=== PATIENT | female | born 1940 | race Caucasian/White ===

== ENCOUNTER 2021-06-26 08:28 | Outpatient (CLI) | payer MEDICARE, SELFPAY ==
[2021-06-26 09:08] LABS: Alanine Aminotransferase 9 U/L (4-35); Albumin Level 4.2 g/dL (3.5-5.1); Alkaline Phosphatase 65 U/L (38-126); Anion Gap 7 mmol/L (8-16); Aspartate Amino Transferase 23 U/L (14-36); Bilirubin,Total 0.8 mg/dL (0.2-1.3); Blood Urea Nitrogen 18 mg/dL (7-17); Calcium 9.3 mg/dL (8.4-10.2); Carbon Dioxide 28 mmol/L (22-30); Chloride 103 mmol/L (98-107); Cholesterol 235 mg/dL (0-200); Estimated Glomerular Filt Rate > 60; Glucose 116 mg/dL (65-110); HDL Direct 96 mg/dL; Hematocrit 36.2 % (37.0-47.0); Mean Corpuscular HGB Conc 33.1 g/dl (32-36); Mean Corpuscular Hemoglobin 32.8 pg (26-34); Mean Corpuscular Volume 98.9 fl (80-100); Mean Platelet Volume 11.1 fl (7.4-10.4); Platelet Count Result 218 k/mm3 (150-375); Red Blood Count 3.66 M/mm3 (4.2-5.4); Red Cell Distribution Width 13.5 % (11.5-14.5); Sodium 138 mmol/L (137-145); Triglycerides 87 mg/dL (<150); White Blood Count 5.4 K/mm3 (4.5-10.0)
[2021-06-26 09:19] LABS: LDL Cholesterol Direct 110 mg/dL
== END 2021-06-26 08:29 | disposition home or self-care (01) ==
PROVIDERS: PCP Family Medicine; Visit Provider Family Medicine
DX: E78.5 Hyperlipidemia, unspecified (principal); R71.8 Other abnormality of red blood cells
CPT/HCPCS: 36415; 80053; 80061; 85027

== ENCOUNTER 2021-07-17 09:00 | Outpatient (CLI) | payer MEDICARE, SELFPAY ==
--- NOTE | ~2021-07-17 | MM_ITS ---
EXAMINATION: MM screening refugio BI w koby HISTORY: Screening TECHNIQUE: Craniocaudal and mediolateral oblique 3-D tomosynthesis images were obtained and synthetic 2-D images were generated. CAD analysis was submitted and interpreted. COMPARISON: No prior mammogram is available for comparison at this institution. BREAST PARENCHYMAL COMPOSITION: There are scattered areas of fibroglandular density. FINDINGS: There is no evidence of suspicious mass, calcification, or architectural distortion to sugg est malignancy in either breast. There has been no suspicious interval change. IMPRESSION: 1. No mammographic evidence of malignancy. 2. Recommend routine screening mammography in one year. BI-RADS Category 1: Negative Reviewed, dictated and finalized at location A. 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
[2021-07-17 10:08] LABS: Iron 121 ug/dL (37-170)
[2021-07-17 10:17] LABS: Percent Iron Saturation 42 % (20-50)
[2021-07-17 10:46] LABS: Folic Acid 7.5 ng/mL (2.76->20)
== END 2021-07-17 09:01 | disposition home or self-care (01) ==
LOC: ANHIMG 09:02
PROVIDERS: PCP Family Medicine; Visit Provider Family Medicine
DX: Z12.31 Encounter for screening mammogram for malignant neoplasm of breast (principal); D64.9 Anemia, unspecified
CPT/HCPCS: 36415; 77063; 77067; 82607; 82746; 83540; 83550

== ENCOUNTER 2021-12-09 07:04 | Outpatient (CLI) | payer MEDICARE, SELFPAY ==
[2021-12-09 08:02] LABS: Hematocrit 34.8 % (37.0-47.0); Hemoglobin 11.2 g/dL (12.0-15.0); Mean Corpuscular HGB Conc 32.2 g/dl (32-36); Mean Corpuscular Hemoglobin 31.9 pg (26-34); Mean Corpuscular Volume 99.1 fl (80-100); Mean Platelet Volume 11.2 fl (7.4-10.4); Platelet Count Result 200 k/mm3 (150-375); Red Blood Count 3.51 M/mm3 (4.2-5.4); Red Cell Distribution Width 13.6 % (11.5-14.5); White Blood Count 5.4 K/mm3 (4.5-10.0)
[2021-12-09 08:23] LABS: Alanine Aminotransferase 6 U/L (6-35); Alkaline Phosphatase 70 U/L (38-126); Anion Gap 2 mmol/L (8-16); Aspartate Amino Transferase 20 U/L (14-36); Bilirubin,Total 0.4 mg/dL (0.2-1.3); Blood Urea Nitrogen 22 mg/dL (7-17); Calcium 8.5 mg/dL (8.4-10.2); Carbon Dioxide 29 mmol/L (22-30); Chloride 109 mmol/L (98-107); Cholesterol 211 mg/dL (0-200); Estimated Glomerular Filt Rate > 60; Glucose 100 mg/dL (65-110); HDL Direct 80 mg/dL; Potassium 3.8 mmol/L (3.4-5.0); Sodium 140 mmol/L (137-145); Triglycerides 43 mg/dL (<150)
[2021-12-09 08:34] LABS: LDL Cholesterol Direct 97 mg/dL
[2021-12-09 08:53] LABS: Carcinoembryonic Antigen 3.7 ng/mL (0.0-3.0)
[2021-12-12 16:08] LABS: Vitamin D 1,25 (OH)2 Total 49 pg/mL (18-72); Vitamin D2 1,25 (OH)2 <8 pg/mL; Vitamin D3 1,25 (OH)2 49 pg/mL
== END 2021-12-09 07:05 | disposition home or self-care (01) ==
LOC: ANHLAB 07:06
PROVIDERS: PCP Family Medicine; Visit Provider Family Medicine
DX: D64.9 Anemia, unspecified (principal); E78.5 Hyperlipidemia, unspecified; E55.9 Vitamin D deficiency, unspecified; Z85.038 Personal history of other malignant neoplasm of large intestine
CPT/HCPCS: 36415; 80053; 80061; 82378; 82652; 84443; 85027

== ENCOUNTER 2021-12-17 08:29 | Outpatient (CLI) | payer MEDICARE, SELFPAY ==
--- NOTE | ~2021-12-17 | CT_ITS ---
EXAMINATION: CT abdomen pelvis w con INDICATION: History of colon cancer TECHNIQUE: Computed tomographic images of the abdomen and pelvis were obtained after the administrati on of 100 cc of Omnipaque 300 intravenous contrast. The dose-length product (DLP) was 175.75 mGy-cm. Automated exposure control and iterative reconstruction technique were employed. COMPARISON: None available FINDINGS: The lung bases are clear. The heart size is normal. The liver, pancreas, gallbladder, and a drenal glands are normal. Subtle areas of low attenuation of the spleen likely represent cysts or lym phangiomas. The kidneys are unremarkable. There is calcified atherosclerosis of the aorta and many of the other arteries. There are changes of right hemicolectomy. No pathologically enlarged abdominal o r pelvic lymph nodes are identified. There is no free intraperitoneal gas or evidence of bowel obstru ction. Colonic diverticulosis is present without evidence of diverticulitis. There is mild thickening of the endometrium. Small cysts of the ovaries measure up to 1.8 cm on the left. IMPRESSION: 1. Changes of right hemicolectomy without evidence of residual or metastatic disease. 2. Endometrial thickening and small ovarian cysts. Follow-up with pelvic ultrasound is recommended. Reviewed, dictated and finalized at location A. IMPRESSION: 1. Changes of right hemicolectomy without evidence of residual or metastatic di sease. 2. Endometrial thickening and small ovarian cysts. Follow-up with pelvic ultras ound is recommended.
== END 2021-12-17 08:30 | disposition home or self-care (01) ==
LOC: ANHIMG 08:30
PROVIDERS: PCP Family Medicine; Visit Provider Family Medicine
DX: Z85.038 Personal history of other malignant neoplasm of large intestine (principal); K57.30 Diverticulosis of large intestine without perforation or abscess without bleeding; N83.292 Other ovarian cyst, left side; N83.291 Other ovarian cyst, right side; R93.89 Abnormal findings on diagnostic imaging of other specified body structures
CPT/HCPCS: 74177; Q9967

== ENCOUNTER 2021-12-31 14:58 | Outpatient (CLI) | payer MEDICARE, SELFPAY ==
--- NOTE | ~2021-12-31 | US_ITS ---
EXAMINATION: US pelvic complete DATE: 12/31/2021 15:46 INDICATION: Postmenopausal. Endometrial thickening. Left ovarian cyst. Comparison:No prior studies for comparison. TECHNIQUE: Multiple transabdominal and endovaginal sonographic images of the pelvis performed. FINDINGS: The uterus measures 4.5 x 2.1 x 3.9 cm. The endometrial complex measures 8 mm. The right ovary measures 2.5 x 1.5 x 1.3 cm and the left ovary measures 2.5 x 2.5 x 2.2 cm. There is a 2.2 cm left ovarian cyst. Normal doppler signal in both ovaries. There is no free fluid in the pelvis. There are no abnormal masses seen on either side. IMPRESSION: 1. Thickened endomtrial complex. The differential diagnosis includes endometrial hyperplasia, polyp a nd carcinoma. Biopsy is recommended. 2: Left ovarian cyst measuring 2.2 cm. Reviewed, dictated and finalized at location A. IMPRESSION: 1. Thickened endomtrial complex. The differential diagnosis includes endometria l hyperplasia, polyp and carcinoma. Biopsy is recommended. 2: Left ovarian cyst measuring 2.2 cm.
== END 2021-12-31 14:59 | disposition home or self-care (01) ==
LOC: ANHIMG 14:59
PROVIDERS: PCP Family Medicine; Visit Provider Family Medicine
DX: N83.202 Unspecified ovarian cyst, left side (principal)
CPT/HCPCS: 76856

== ENCOUNTER 2022-01-29 12:40 | Outpatient (CLI) | payer MEDICARE, SELFPAY ==
[2022-02-02 07:27] LABS: CA-125 4 U/mL (<35)
== END 2022-01-29 12:41 | disposition home or self-care (01) ==
LOC: ANHLAB 12:49
PROVIDERS: PCP Family Medicine; Visit Provider Obstetrics & Gynecology
DX: R19.09 Other intra-abdominal and pelvic swelling, mass and lump (principal)
CPT/HCPCS: 36415; 86304

== ENCOUNTER → 2022-02-23 12:46 | Outpatient (CLI) | payer MEDICARE, SELFPAY ==
--- NOTE | ~2022-02-23 | XR_ITS ---
XR abdomen/kub 1V DATE: 02/23/2022 12:59 INDICATION: Urine positive for urinary tract infection. Evaluate for kidney stones. TECHNIQUE: Supine AP view COMPARISON: 12/17/2021 CT abdomen pelvis with IV contrast material FINDINGS: No kidney or other urinary tract stones were evident on the CT abdomen pelvis examination o f 12/17/2021. No apparent renal calcifications are noted on the KUB. Status post right partial colectomy with suture line overlying the right midabdomen. The psoas shadows are intact. No visceromegaly is evident. There is no evidence of bowel obstruction. Mild levoscoliosis of multilevel degenerative disc disease of the lumbar spine. Diffuse osteopenia. IMPRESSION: No urinary tract calcifications are evident Status post right partial colectomy Reviewed, dictated and finalized at Location A. Reviewed, dictated and finalized at location B.
== END ==
PROVIDERS: PCP Family Medicine; Visit Provider Family Medicine
DX: R10.9 Unspecified abdominal pain (principal)
CPT/HCPCS: 74018

== ENCOUNTER 2022-05-04 08:20 | Outpatient (CLI) | payer MEDICARE, SELFPAY ==
[2022-05-04 08:42] LABS: Hematocrit 34.8 % (37.0-47.0); Hemoglobin 11.1 g/dL (12.0-15.0); Mean Corpuscular HGB Conc 31.9 g/dl (32-36); Mean Corpuscular Volume 97.2 fl (80-100); Mean Platelet Volume 10.7 fl (7.4-10.4); Platelet Count Result 214 k/mm3 (150-375); Red Blood Count 3.58 M/mm3 (4.2-5.4); White Blood Count 4.8 K/mm3 (4.5-10.0)
[2022-05-04 08:54] LABS: Alanine Aminotransferase 8 U/L (6-35); Alkaline Phosphatase 67 U/L (38-126); Anion Gap 10 mmol/L (8-16); Aspartate Amino Transferase 20 U/L (14-36); Bilirubin,Total 0.3 mg/dL (0.2-1.3); Blood Urea Nitrogen 20 mg/dL (7-17); Calcium 8.6 mg/dL (8.4-10.2); Carbon Dioxide 29 mmol/L (22-30); Chloride 102 mmol/L (98-107); Cholesterol 206 mg/dL (0-200); Estimated Glomerular Filt Rate > 60; Glucose 97 mg/dL (65-110); HDL Direct 69 mg/dL; Potassium 4.1 mmol/L (3.4-5.0); Sodium 141 mmol/L (137-145); Triglycerides 50 mg/dL (<150)
[2022-05-04 09:05] LABS: LDL Cholesterol Direct 101 mg/dL
== END 2022-05-04 08:21 | disposition home or self-care (01) ==
PROVIDERS: PCP Family Medicine; Visit Provider Family Medicine
DX: E78.5 Hyperlipidemia, unspecified (principal); D64.9 Anemia, unspecified
CPT/HCPCS: 36415; 80053; 80061; 85027

== ENCOUNTER 2022-05-20 08:16 | Outpatient (CLI) | payer MEDICARE, SELFPAY ==
[2022-05-20 08:36] LABS: Hematocrit 35.8 % (37.0-47.0); Hemoglobin 11.5 g/dL (12.0-15.0); Mean Corpuscular HGB Conc 32.1 g/dl (32-36); Mean Corpuscular Hemoglobin 31.9 pg (26-34); Mean Corpuscular Volume 99.2 fl (80-100); Mean Platelet Volume 10.7 fl (7.4-10.4); Platelet Count Result 194 k/mm3 (150-375); Red Blood Count 3.61 M/mm3 (4.2-5.4)
[2022-05-20 09:02] LABS: Iron 85 ug/dL (37-170)
[2022-05-20 09:03] LABS: Alanine Aminotransferase 10 U/L (6-35); Albumin Level 4.3 g/dL (3.5-5.1); Alkaline Phosphatase 79 U/L (38-126); Anion Gap 9 mmol/L (8-16); Aspartate Amino Transferase 20 U/L (14-36); Bilirubin,Total 0.5 mg/dL (0.2-1.3); Blood Urea Nitrogen 26 mg/dL (7-17); Calcium 8.9 mg/dL (8.4-10.2); Carbon Dioxide 27 mmol/L (22-30); Chloride 104 mmol/L (98-107); Cholesterol 218 mg/dL (0-200); Estimated Glomerular Filt Rate > 60; Glucose 99 mg/dL (65-110); HDL Direct 77 mg/dL; Sodium 140 mmol/L (137-145); Triglycerides 55 mg/dL (<150)
[2022-05-20 09:11] LABS: Percent Iron Saturation 31 % (20-50)
[2022-05-20 09:14] LABS: LDL Cholesterol Direct 94 mg/dL
== END 2022-05-20 08:17 | disposition home or self-care (01) ==
LOC: ANHLAB 08:18
PROVIDERS: PCP Family Medicine; Visit Provider Family Medicine
DX: D64.9 Anemia, unspecified (principal); E78.5 Hyperlipidemia, unspecified; Z79.899 Other long term (current) drug therapy
CPT/HCPCS: 36415; 80053; 80061; 82728; 83540; 83550; 85027

== ENCOUNTER 2022-07-08 10:09 | Outpatient (CLI) | payer MEDICARE, SELFPAY ==
--- NOTE | ~2022-07-08 | CT_ITS ---
EXAMINATION: CT abdomen pelvis w con INDICATION: History of colon cancer TECHNIQUE: Computed tomographic images of the abdomen and pelvis were obtained after the administrati on of 100 cc of Omnipaque 350 intravenous contrast. The dose-length product (DLP) was 272.37 mGy-cm. Automated exposure control and iterative reconstruction technique were employed. COMPARISON: 12/17/2021 FINDINGS: Minimal dependent atelectasis is present in the lung bases. The heart size is normal. The l iver, pancreas, gallbladder, and adrenal glands are normal. Again noted are small, subtle areas of lo w attenuation in the spleen, likely reflecting cysts or lymphangiomas. Cysts of the kidneys measure u p to 7 mm on the left. There is calcified atherosclerosis of the aorta and many of the other arteries . There are changes of right hemicolectomy. No pathologically enlarged abdominal or pelvic lymph node s are identified. There is no free intraperitoneal gas or evidence of bowel obstruction. Again noted are small, stable cysts of the ovaries measuring up to 1.8 cm on the left. Colonic diverticulosis is present without evidence of diverticulitis. There is severe lumbar spondylosis. IMPRESSION: 1. Changes of right hemicolectomy without evidence of residual or metastatic disease. Reviewed, dictated and finalized at location B. 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 Changes of right hemicolectomy without evidence of residual or metastatic di kevin.
[2022-07-08 10:32] LABS: Estimated Glomerular Filt Rate 60
== END 2022-07-08 10:10 | disposition home or self-care (01) ==
PROVIDERS: PCP Family Medicine; Visit Provider Family Medicine
DX: Z85.038 Personal history of other malignant neoplasm of large intestine (principal)
CPT/HCPCS: 74177; Q9967

== ENCOUNTER 2022-07-16 08:25 | Outpatient (CLI) | payer MEDICARE, SELFPAY ==
[2022-07-19 04:24] LABS: CA-125 6 U/mL (<35)
== END 2022-07-16 08:26 | disposition home or self-care (01) ==
PROVIDERS: PCP Family Medicine; Visit Provider Obstetrics & Gynecology
DX: R19.09 Other intra-abdominal and pelvic swelling, mass and lump (principal)
CPT/HCPCS: 36415; 86304

== ENCOUNTER 2022-09-28 08:45 | Outpatient (CLI) | payer MEDICARE, SELFPAY ==
[2022-09-28 09:16] LABS: Hematocrit 35.5 % (37.0-47.0); Hemoglobin 11.4 g/dL (12.0-15.0); Mean Corpuscular HGB Conc 32.1 g/dl (32-36); Mean Corpuscular Hemoglobin 31.4 pg (26-34); Mean Corpuscular Volume 97.8 fl (80-100); Mean Platelet Volume 10.2 fl (7.4-10.4); Platelet Count Result 210 k/mm3 (150-375); Red Blood Count 3.63 M/mm3 (4.2-5.4); Red Cell Distribution Width 13.2 % (11.5-14.5); White Blood Count 4.3 K/mm3 (4.5-10.0)
[2022-09-28 09:27] LABS: Alanine Aminotransferase 11 U/L (6-35); Alkaline Phosphatase 62 U/L (38-126); Anion Gap 4 mmol/L (8-16); Aspartate Amino Transferase 22 U/L (14-36); Bilirubin,Total 0.6 mg/dL (0.2-1.3); Blood Urea Nitrogen 18 mg/dL (7-17); Calcium 8.6 mg/dL (8.4-10.2); Carbon Dioxide 31 mmol/L (22-30); Chloride 103 mmol/L (98-107); Cholesterol 223 mg/dL (0-200); Estimated Glomerular Filt Rate > 60; Glucose 98 mg/dL (65-110); HDL Direct 85 mg/dL; Potassium 4.1 mmol/L (3.4-5.0); Sodium 138 mmol/L (137-145); Triglycerides 100 mg/dL (<150)
[2022-09-28 09:37] LABS: LDL Cholesterol Direct 103 mg/dL
[2022-10-01 23:50] LABS: Vitamin D 1,25 (OH)2 Total 50 pg/mL (18-72); Vitamin D2 1,25 (OH)2 <8 pg/mL; Vitamin D3 1,25 (OH)2 50 pg/mL
== END 2022-09-28 08:46 | disposition home or self-care (01) ==
PROVIDERS: PCP Family Medicine; Visit Provider Family Medicine
DX: D64.9 Anemia, unspecified (principal); E55.9 Vitamin D deficiency, unspecified; E78.5 Hyperlipidemia, unspecified; Z79.899 Other long term (current) drug therapy
CPT/HCPCS: 36415; 80053; 80061; 82652; 85027

== ENCOUNTER 2022-10-01 09:52 | Outpatient (CLI) | payer MEDICARE, SELFPAY ==
--- NOTE | ~2022-10-01 | MM_ITS ---
EXAMINATION: MM screening refugio BI w koby HISTORY: Screening TECHNIQUE: Craniocaudal and mediolateral oblique 3-D tomosynthesis images were obtained and synthetic 2-D images were generated. CAD analysis was submitted and interpreted. COMPARISON: 07/07/2021 BREAST PARENCHYMAL COMPOSITION: Breast composed of scattered areas of fibroglandular density FINDINGS: The right breast is stable without evidence for malignancy. There is developing asymmetry i n the outer aspect of the left breast on CC view. There is a new mass in the upper outer quadrant of the left breast anteriorly. IMPRESSION: 1. New left breast mass with developing left breast asymmetry. 2. Additional mammographic views and possible breast ultrasound are recommended. BI-RADS Category 0: Incomplete: Needs additional imaging evaluation. Reviewed, dictated and finalized at location A. IMPRESSION: 1. New left breast mass with developing left breast asymmetry. 2. Additional mammographic views and possible breast ultrasound are recommended . BI-RADS Category 0: Incomplete: Needs additional imaging evaluation.
== END 2022-10-01 09:53 | disposition home or self-care (01) ==
PROVIDERS: PCP Family Medicine; Visit Provider Family Medicine
DX: Z12.31 Encounter for screening mammogram for malignant neoplasm of breast (principal); N63.20 Unspecified lump in the left breast, unspecified quadrant
CPT/HCPCS: 77063; 77067

== ENCOUNTER 2022-10-21 12:55 | Outpatient (CLI) | payer MEDICARE, SELFPAY ==
--- NOTE | ~2022-10-21 | MMUS_ITS ---
EXAMINATION: MM diagnostic refugio LT w koby, US breast LT limited HISTORY: New left breast mass and developing left breast asymmetry reported on October 01, 2022 screenin g mammogram TECHNIQUE: Additional 3-D tomosynthesis images of left breast were performed and synthetic 2-D images were generated. CAD analysis was submitted and interpreted. High resolution upper outer quadrant lef t breast ultrasound was performed. COMPARISON: October 01, 2022 bilateral screening mammogram July 17, 2021 bilateral screening mammogram FINDINGS: MAMMOGRAPHIC FINDINGS: There is a circumscribed approximately 5 mm opacity with halo sign in the anterior aspect of the uppe r inner quadrant of the left breast. The mammographic appearance is benign. No suspicious mass, architectural distortion, malignant calcification, skin thickening or retraction is detected otherwise. ULTRASOUND: Real-time imaging of the upper outer quadrant left breast reveals a 4 x 6 mm simple cyst with through transmission and posterior enhancement at 1:00 3 cm from the nipple, corresponding to the mammograph ic finding. No suspicious mass or shadowing, cyst or other significant finding is noted elsewhere in the upper ou ter quadrant of the left breast IMPRESSION: 1. Benign 4 x 6 mm cyst at 1:00 3 cm from nipple 2. Routine mammographic screening is recommended BI-RADS Category 2: Benign finding(s). Reviewed, dictated and finalized at location A. IMPRESSION: 1. Benign 4 x 6 mm cyst at 1:00 3 cm from nipple 2. Routine mammographic screening is recommended BI-RADS Category 2: Benign finding(s).
== END 2022-10-21 12:56 | disposition home or self-care (01) ==
LOC: ANHIMG 12:55
PROVIDERS: PCP Family Medicine; Visit Provider Family Medicine
DX: N63.21 Unspecified lump in the left breast, upper outer quadrant (principal); N60.02 Solitary cyst of left breast
CPT/HCPCS: 76642; 77061; 77065; G0279

== ENCOUNTER 2023-02-11 10:36 | Outpatient (CLI) | payer MEDICARE, SELFPAY ==
--- NOTE | ~2023-02-11 | US_ITS ---
EXAMINATION: US pelvic complete DATE: 02/11/2023 11:24 INDICATION: Ovarian cyst. TECHNIQUE: Multiple transabdominal sonographic images of the pelvis were obtained. COMPARISON: CT abdomen and pelvis 07/08/2022, pelvis ultrasound 12/31/2021 FINDINGS: The uterus measures 4.4 x 1.8 x 2.9 cm. There is no free fluid in the pelvis. The endometrial complex measures 2 mm in thickness. The right ovary measures 1.6 x 3.1 x 2.3 cm. There is a 2.6 cm cyst in r ight ovary, likely benign. The left ovary measures 2.9 x 3.2 x 2.6 cm. There is a 2.5 cm cyst in left ovary, likely benign. There is normal vascular flow in the ovaries. IMPRESSION: 1. Small ovarian cysts, likely benign. Reviewed, dictated and finalized at location A.
== END 2023-02-11 10:37 | disposition home or self-care (01) ==
LOC: ANHIMG 10:38
PROVIDERS: PCP Family Medicine; Visit Provider Obstetrics & Gynecology
DX: N83.201 Unspecified ovarian cyst, right side (principal)
CPT/HCPCS: 76856

== ENCOUNTER 2023-04-01 08:29 | Outpatient (CLI) | payer MEDICARE, SELFPAY ==
[2023-04-04 01:22] LABS: CA-125 4 U/mL (<35)
== END 2023-04-01 08:30 | disposition home or self-care (01) ==
PROVIDERS: PCP Family Medicine; Visit Provider Obstetrics & Gynecology
DX: N83.209 Unspecified ovarian cyst, unspecified side (principal); R19.09 Other intra-abdominal and pelvic swelling, mass and lump
CPT/HCPCS: 36415; 86304

== ENCOUNTER 2023-07-20 08:05 | Outpatient (CLI) | payer MEDICARE, SELFPAY ==
[2023-07-20 09:11] LABS: Hematocrit 37.9 % (37.0-47.0); Mean Corpuscular HGB Conc 31.7 g/dl (32-36); Mean Corpuscular Hemoglobin 31.7 pg (26-34); Mean Corpuscular Volume 100.3 fl (80-100); Mean Platelet Volume 11.5 fl (7.4-10.4); Platelet Count Result 216 k/mm3 (150-375); Red Blood Count 3.78 M/mm3 (4.2-5.4); Red Cell Distribution Width 12.9 % (11.5-14.5); White Blood Count 4.8 K/mm3 (4.5-10.0)
[2023-07-20 09:25] LABS: Alanine Aminotransferase 8 U/L (6-35); Albumin Level 3.9 g/dL (3.5-5.1); Alkaline Phosphatase 66 U/L (38-126); Anion Gap 5 mmol/L (8-16); Aspartate Amino Transferase 21 U/L (14-36); Bilirubin,Total 0.7 mg/dL (0.2-1.3); Blood Urea Nitrogen 18 mg/dL (7-17); Calcium 8.9 mg/dL (8.4-10.2); Carbon Dioxide 31 mmol/L (22-30); Chloride 103 mmol/L (98-107); Cholesterol 217 mg/dL (0-200); Estimated Glomerular Filt Rate > 60; Glucose 96 mg/dL (65-110); HDL Direct 81 mg/dL; Potassium 3.5 mmol/L (3.4-5.0); Sodium 139 mmol/L (137-145); Triglycerides 69 mg/dL (<150)
[2023-07-20 09:36] LABS: LDL Cholesterol Direct 110 mg/dL
[2023-07-20 09:54] LABS: Carcinoembryonic Antigen 3.7 ng/mL (0.0-3.0)
== END 2023-07-20 08:06 | disposition home or self-care (01) ==
PROVIDERS: PCP Family Medicine; Visit Provider Family Medicine
DX: E78.5 Hyperlipidemia, unspecified (principal); D64.9 Anemia, unspecified; Z79.899 Other long term (current) drug therapy; Z85.038 Personal history of other malignant neoplasm of large intestine
CPT/HCPCS: 36415; 80053; 80061; 82378; 84443; 85027

== ENCOUNTER → 2023-07-26 10:41 | Outpatient (CLI) | payer MEDICARE, SELFPAY ==
--- NOTE | ~2023-07-26 | XR_ITS ---
XR shoulder LT min 2V DATE: 07/26/2023 14:21 INDICATION: Left shoulder pain TECHNIQUE: 4 views COMPARISON: None FINDINGS: There is diffuse osteopenia. There is prominent degenerative disc disease of the included lower cervical spine. There is mild scoliosis as well as degenerative spurring of the thoracic spine. There is mild spurring of the left humeral head consistent with osteoarthritis. No fracture, dislocat ion, periosteal reaction or bone destruction or abnormal soft tissue calcification of the left should er. Aortic arch calcification. IMPRESSION: Glenohumeral osteoarthritis Osteopenia Degenerative changes of the cervical and thoracic spine Reviewed, dictated and finalized at location B. 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
== END ==
PROVIDERS: PCP Family Medicine; Visit Provider Family Medicine
DX: M19.012 Primary osteoarthritis, left shoulder (principal); M85.80 Other specified disorders of bone density and structure, unspecified site; M47.814 Spondylosis without myelopathy or radiculopathy, thoracic region; M47.812 Spondylosis without myelopathy or radiculopathy, cervical region
CPT/HCPCS: 73030

== ENCOUNTER → 2023-07-29 09:09 | Outpatient (CLI) | payer MEDICARE, SELFPAY ==
--- NOTE | ~2023-07-29 | CT_ITS ---
CT of the Abdomen and Pelvis: Indication: Colon cancer Technique: 2.5 mm axial scans were obtained through the abdomen and pelvis following intravenous adm inistration of 100 cc of Omnipaque 350. Dose reduction technique was used on this scan by utilizing a utomated exposure control and iterative reconstruction technique. The dose-length product (DLP) was 3 88.27 mGy-cm. COMPARISON: 07/08/2022 Findings: Scans through the lung bases are unremarkable. The liver, spleen, pancreas, gallbladder, adrenals and kidneys are within normal limits. There are at herosclerotic calcifications of the aorta. No lymphadenopathy. No bowel obstruction or bowel wall thickening. Evidence of prior partial right colectomy. Images through the pelvis were performed. Urinary bladder unremarkable. 2.3 cm cystic left ovarian le jennifer noted. 1.6 cm cystic right ovarian lesion noted. No ascites. Impression: No evidence for active malignancy or metastatic disease. Partial right colectomy. Small cystic bilateral ovarian lesions, unchanged. Reviewed, dictated and finalized at location . 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 Partial right colectomy. Small cystic bilateral ovarian lesions, unchanged.
== END ==
PROVIDERS: PCP Family Medicine; Visit Provider Family Medicine
DX: Z85.038 Personal history of other malignant neoplasm of large intestine (principal)
CPT/HCPCS: 74177; Q9967

== ENCOUNTER 2023-12-08 15:16 | Outpatient (CLI) | payer MEDICARE, SELFPAY ==
--- NOTE | ~2023-12-08 | MM_ITS ---
EXAMINATION: MM screening refugio BI w koby HISTORY: Screening TECHNIQUE: Craniocaudal and mediolateral oblique 3-D tomosynthesis images were obtained and synthetic 2-D images were generated. CAD analysis was submitted and interpreted. COMPARISON: Comparison to multiple prior studies sequentially, with oldest reviewed study dated 07/17. BREAST PARENCHYMAL COMPOSITION: Not dense: There are scattered areas of fibroglandular density. FINDINGS: There is no evidence of suspicious mass, calcification, or architectural distortion to sugg est malignancy in either breast. There has been no suspicious interval change. IMPRESSION: 1. No mammographic evidence of malignancy. 2. Recommend routine screening mammography in one year. BI-RADS Category 1: Negative Reviewed, dictated and finalized at location B.
== END 2023-12-08 15:17 | disposition home or self-care (01) ==
LOC: ANHIMG 15:18
PROVIDERS: PCP Family Medicine; Visit Provider Family Medicine
DX: Z12.31 Encounter for screening mammogram for malignant neoplasm of breast (principal)
CPT/HCPCS: 77063; 77067

== ENCOUNTER 2024-01-06 15:01 | Outpatient (CLI) | payer MEDICARE, SELFPAY ==
--- NOTE | ~2024-01-06 | DEXA_ITS ---
Bone Density Report Name: PANDA RUBALCAVA Age: 83 Sex: Female Ethnicity: White Date of : 1940 Indication: postmenopausal; screening for osteoporosis; height loss; cancer; Referring Provider: YOLI ARMENTA Study: Bone densitometry was performed. Exam Date: January 06, 2024 Accession number: [id number] Bone Density: Region BMD T-score Z-score Classification AP Spine(L1-L4) 0.923 -1.1 1.6 Osteopenia Femoral Neck (Left) 0.501 -3.1 -0.8 Osteoporosis Total Hip (Left) 0.739 -1.7 0.5 Osteopenia Femoral Neck (Right) 0.528 -2.9 -0.5 Osteoporosis Total Hip (Right) 0.791 -1.2 0.9 Osteopenia Total Hip Mean 0.765 -1.5 0.7 Osteopenia World Health Organization criteria for BMD impression classify patients as: Normal (T-score at or above -1.0), Osteopenia (T-score between -1.0 and -2.5), or Osteoporosis (T-score at or below -2.5). 10-year Fracture Risk: FRAX not reported because: Some T-score for Spine Total or Hip Total or Femoral Neck at or below -2.5 Clinical Information Provided by Patient: Has used the following medications: Evista (i.e. raloxifene), Vitamin D Has the following medical conditions: Cancer Patient maximum height was 61.75 Menopause Age: 42 Drinks caffeinated beverages Onset of menses at age 15 Number of children 1 Impression: The patient has osteoporosis, based on the Left Femoral Neck T-score. Discussion: INCREASED RISK OF FRACTURE. BONE DENSITY IS UNDESIRABLY LOW AT ONE OR MORE SKELETAL SITES, CONSISTENT WITH POSTMENOPAUSAL OSTEOPOROSIS. This patient's lowest T-score meets the World Health Organization's (WHO) criteria for osteoporosis at one or more sites (T-score -2.5 or below). In untreated patients, the risk of osteoporotic fracture increases approximately two-fold for each 1.0 SD decrease in T-score. Low bone density is not the only risk factor for fracture; also consider factors such as patient's age, frailty or poor health, risk of falling, risk of injury, previous osteoporotic fracture, family history of osteoporosis, cigarette smoking, low body weight, etc. Not everyone with low bone mineral density has osteoporosis; osteomalacia and other metabolic bone disorders should also be considered. Patients who have osteoporosis should be evaluated for specific diseases and conditions (secondary causes) that may cause or contribute to bone loss. The [place] [employer] Endocrinologists (AACE) and National Osteoporosis Foundation (NOF) recommend pharmacologic intervention for all postmenopausal women whose T-score is in this range. The patient should follow a healthful lifestyle (good nutrition with adequate calcium and vitamin D, and appropriate weight-bearing exercise). Follow-Up: Consider a repeat BMD and Vertebral Fracture Assessment (VFA) exam in 2 years o
== END 2024-01-06 15:02 | disposition home or self-care (01) ==
LOC: ANHIMG 15:04
PROVIDERS: PCP Family Medicine; Visit Provider Family Medicine
DX: M81.0 Age-related osteoporosis without current pathological fracture (principal); M85.88 Other specified disorders of bone density and structure, other site; M85.852 Other specified disorders of bone density and structure, left thigh; M85.851 Other specified disorders of bone density and structure, right thigh
CPT/HCPCS: 77080

== ENCOUNTER 2024-01-20 08:28 | Outpatient (CLI) | payer MEDICARE, SELFPAY ==
[2024-01-20 08:56] LABS: Hematocrit 37.5 % (37.0-47.0); Hemoglobin 11.9 g/dL (12.0-15.0); Mean Corpuscular HGB Conc 31.7 g/dl (32-36); Mean Corpuscular Hemoglobin 31.2 pg (26-34); Mean Corpuscular Volume 98.4 fl (80-100); Mean Platelet Volume 11.2 fl (7.4-10.4); Platelet Count Result 207 k/mm3 (150-375); Red Blood Count 3.81 M/mm3 (4.2-5.4); Red Cell Distribution Width 12.9 % (11.5-14.5); White Blood Count 5.2 K/mm3 (4.5-10.0)
[2024-01-20 09:12] LABS: Alanine Aminotransferase 8 U/L (6-35); Albumin Level 4.1 g/dL (3.5-5.1); Alkaline Phosphatase 65 U/L (38-126); Anion Gap 7 mmol/L (4-12); Aspartate Amino Transferase 21 U/L (14-36); Bilirubin,Total 0.6 mg/dL (0.2-1.3); Blood Urea Nitrogen 23 mg/dL (7-17); Calcium 8.9 mg/dL (8.4-10.2); Carbon Dioxide 29 mmol/L (22-30); Chloride 103 mmol/L (98-107); Cholesterol 200 mg/dL (0-200); Estimated Glomerular Filt Rate 60; Glucose 96 mg/dL (65-110); HDL Direct 83 mg/dL; Potassium 3.8 mmol/L (3.4-5.0); Sodium 139 mmol/L (137-145); Triglycerides 57 mg/dL (<150)
[2024-01-20 09:23] LABS: LDL Cholesterol Direct 93 mg/dL
[2024-01-23 14:54] LABS: Vitamin D 1,25 (OH)2 Total 42 pg/mL (18-72); Vitamin D2 1,25 (OH)2 <8 pg/mL; Vitamin D3 1,25 (OH)2 42 pg/mL
== END 2024-01-20 08:29 | disposition home or self-care (01) ==
LOC: ANHLAB 08:32
PROVIDERS: PCP Family Medicine; Visit Provider Family Medicine
DX: E78.5 Hyperlipidemia, unspecified (principal); D64.9 Anemia, unspecified; E55.9 Vitamin D deficiency, unspecified; Z79.899 Other long term (current) drug therapy
CPT/HCPCS: 36415; 80053; 80061; 82652; 84443; 85027

== ENCOUNTER 2024-03-13 11:28 | Outpatient (CLI) | payer MEDICARE, SELFPAY ==
[2024-03-15 06:23] LABS: CA-125 5 U/mL (<35)
== END 2024-03-13 11:29 | disposition home or self-care (01) ==
LOC: ANHLAB 11:32
PROVIDERS: PCP Family Medicine; Visit Provider Obstetrics & Gynecology
DX: R19.09 Other intra-abdominal and pelvic swelling, mass and lump (principal)
CPT/HCPCS: 36415; 86304

== ENCOUNTER 2024-03-15 10:11 | Outpatient (CLI) | payer MEDICARE, SELFPAY ==
--- NOTE | ~2024-03-15 | US_ITS ---
EXAMINATION: US pelvic complete DATE: 03/15/2024 11:12 INDICATION: Unspecified ovarian cyst, unspecified side. TECHNIQUE: Multiple transabdominal sonographic images of the pelvis were obtained. COMPARISON: Pelvis ultrasound 02/11/2023, CT abdomen and pelvis 07/29/2023 FINDINGS: The uterus measures 4.5 x 1.8 x 3.2 cm. There is no free fluid in the pelvis. The endometrial complex measures 3 mm in thickness. The right ovary measures 3.0 x 2.6 x 1.7 cm. There is a 2.8 cm cyst in r ight ovary. The left ovary measures 2.9 x 3.1 x 3.1 cm. There is a 2.8 cm cyst in left ovary. IMPRESSION: 1. Chronic small cysts in the ovaries, likely benign. Reviewed, dictated and finalized at location A.
== END 2024-03-15 10:12 | disposition home or self-care (01) ==
PROVIDERS: PCP Family Medicine; Visit Provider Obstetrics & Gynecology
DX: N83.209 Unspecified ovarian cyst, unspecified side (principal)
CPT/HCPCS: 76856

== ENCOUNTER 2024-05-11 08:26 | Day surgery (SDC) | payer MEDICARE, SELFPAY ==
[2024-04-25 11:30] VITALS: BMI 26.2
[2024-05-11 09:19] VITALS: BP 151/75; PULSE 100; RESP 20; TEMP 36.6; O2SAT 100; BMI 25.8
[2024-05-11] MEDS: LACTATED RINGERS 1,000 ML 150 ML IV CONT (09:32)
--- NOTE | 2024-05-11 09:47 | PM.HPGS ---
History of Present Illness History of Present Illness Consent: Risks, benefits, and alternatives have been discussed and questions answered. Patient agrees to proceed with procedure. Chief complaint: history of colon cancer and polyps Narrative: Marisabel Cordova is a 83 year old female presents for colonoscopy. Patient has a history of colon cancer resected 10 years ago in 2013. This was performed in [place]. Sent colonoscopy was 4 years ago. Apparently she has had recurrent colon polyps with adjacent tattoo placement. Patient denies abdominal pain. Appetite and bowel movements are normal. She denies any bleeding. She does report she had a ventral hernia repair after her initial surgery at some point. Family history is noncontributory. Review of Systems Review of Systems: All systems reviewed & are unremarkable except as noted in HPI and below PMFSH Past Medical History Medical History (Updated 05/11/24 @ 06:54 by Hardeep Pineda DO) Allergies Anemia Colon cancer (~2013) Hyperlipemia Osteoporosis Surgical History Surgical History H/O hernia repair (~07/04/16) H/O right hemicolectomy H/O tubal ligation Hx of appendectomy Family History Family History Mother Hypertension Sibling Thyroid disorder Other Depression Social History Social History Smoking status: Never smoker Alcohol intake: current Drinks per week: 1 Alcohol use details: socially Substance use: never Substance use type: does not use Lack of Transportation: No Lack of Food: Never True Current Housing: I Have Housing Concerned About Future Housing: No Difficulty Paying Gas/Electric Bills: No Difficulty Paying for Meds: No Currently Unemployed: No Education: High School Diploma/GED Difficulty w/ Childcare or Family Care: No Living arrangements: alone Occupation/Education: retired Gender identity (if verbalized by the patient): Female Spiritual care concerns: No Meds Home Medications and Allergies Home Medications Medication Instructions Recorded Confirmed Type cholecalciferol (vitamin D3) 50 50 mcg PO DAILY 05/08/21 05/11/24 History mcg (2,000 unit) capsule vitamin B complex (B 1 tablet PO DAILY 01/29/22 05/11/24 History Complex-Vitamin B12 tablet) raloxifene 60 mg tablet (Evista) 60 mg PO .QOD #45 tabs 08/23/23 05/11/24 Rx Allergies Allergy/AdvReac Type Severity Reaction Status Date / Time risedronate sodium Allergy Severe Unknown Verified 05/11/24 09:17 [From Actonel] Penicillins Allergy Intermediate Swelling Verified 05/11/24 09:17 Sulfa (Sulfonamide Allergy Intermediate Hives Verified 05/11/24 09:17 Antibiotics) Vital Signs Vital Signs - 24 hr 05/11/24 09:19 Temperature 97.9 F Pulse Rate 100 Respiratory Rate 20 Blood Pressure 151/75 H Pulse Oximetry 100 Oxygen Delivery Room Air Exam Narrative: Physical exam reveals patient to be alert and oriented x3. Vital signs stable. HEENT exam is unremarkable. Patient is anicteric. Lungs are clear to auscultation and to percussion is without murmur or extra sounds. Abdomen bowel sounds are present soft nontender with no organomegaly. Digital external rectal exam is normal. Assessment and Plan Assessment and plan (1) History of colon cancer: Code(s): Z85.038 - Personal history of other malignant neoplasm of large intestine Status: Acute Assessment and Plan: Patient has a history of colon cancer status post right hemicolectomy. She also has had polyps subsequent to this. Plan for continued surveillance at 3 year intervals if her health remains good.
--- NOTE | 2024-05-11 09:59 | WPDANESEPPF ---
Anes - Initial Pre Proc Eval Procedure: Operation Date: 05/11/24 10:30 Proposed Procedures p Diagnostic Colonoscopy - Neftaly Morales MD Date/Time: 05/11/24 09:59 Surgeon: Neftaly Morales MD Pre Op Diagnosis: history of colon cancer and polyps Patient Data Age: 83 Gender: F Height: 1.47 m Weight: 56 kg Last Vital Signs Temp 36.6 C 05/11/24 09:19 Pulse 100 05/11/24 09:19 Resp 20 05/11/24 09:19 BP 151/75 H 05/11/24 09:19 Pulse Ox 100 05/11/24 09:19 O2 Del Method Room Air 05/11/24 09:19 Allergies Allergy/AdvReac Type Severity Reaction Status Date / Time risedronate sodium Allergy Severe Unknown Verified 05/11/24 09:17 [From Actonel] Penicillins Allergy Intermediate Swelling Verified 05/11/24 09:17 Sulfa (Sulfonamide Allergy Intermediate Hives Verified 05/11/24 09:17 Antibiotics) Home Medications Medication Instructions Recorded Confirmed Type cholecalciferol (vitamin D3) 50 50 mcg PO DAILY 05/08/21 05/11/24 History mcg (2,000 unit) capsule vitamin B complex (B 1 tablet PO DAILY 01/29/22 05/11/24 History Complex-Vitamin B12 tablet) raloxifene 60 mg tablet (Evista) 60 mg PO .QOD #45 tabs 08/23/23 05/11/24 Rx Patient hx anesthesia problems: none Family hx anesthesia problems: none Results Review: All pre-operative results and documents have been reviewed as part of the pre-operative evaluation. [facility] Past Medical History Medical History (Updated 05/11/24 @ 06:54 by Hardeep Pineda DO) Allergies Anemia Colon cancer (~2013) Hyperlipemia Osteoporosis Surgical History Surgical History H/O hernia repair (~07/04/16) H/O right hemicolectomy H/O tubal ligation Hx of appendectomy Family History Family History Mother Hypertension Sibling Thyroid disorder Other Depression Social History Social History (Updated 05/11/24 @ 10:00 by AB Yañez Smoking status: Never smoker Alcohol intake: current Drinks per week: 7 Alcohol use details: 1 drink/day Substance use: never Substance use type: does not use Lack of Transportation: No Lack of Food: Never True Current Housing: I Have Housing Concerned About Future Housing: No Difficulty Paying Gas/Electric Bills: No Difficulty Paying for Meds: No Currently Unemployed: No Education: High School Diploma/GED Difficulty w/ Childcare or Family Care: No Living arrangements: alone Occupation/Education: retired Gender identity (if verbalized by the patient): Female Spiritual care concerns: No Anes - Eval Final PreProcedure Day of Procedure 05/11/24 09:59 Patient weight: obese Heart: regular rate and rhythm Lungs: clear to auscultation Airway: Mallampati scale class II Neurological: alert and oriented Last oral intake: >/= 8 hours ASA classification: III Emergent: no Anesthetic plan: proceed Anesthesia type and monitoring: general GIVS and standard monitoring Results Review: All pre-operative results and documents have been reviewed as part of the pre-operative evaluation. Informed Consent: The patient's anesthetic plan and its attendant risks and benefits were discussed with the patient/family/POA. Questions were solicited and answers provided to the satisfaction of the patient/family/POA.
[2024-05-11 10:37] VITALS: BP 154/78; PULSE 89; RESP 20; O2SAT 97
[2024-05-11 10:47] VITALS: BP 143/84; PULSE 84; RESP 18; O2SAT 100
[2024-05-11 10:57] VITALS: BP 142/70; PULSE 84; RESP 15; O2SAT 100
--- NOTE | 2024-05-11 12:57 | WPDANESPN ---
Anes - Prog Note Post-Op Date/Time: 05/11/24 12:57 Cardiovascular status: normal Respiratory status: normal Airway patency: baseline Mental status: baseline Post-Op hydration status: normal Vital Signs: Last Vital Signs Temp 36.6 C 05/11/24 09:19 Pulse 84 05/11/24 10:57 Resp 15 05/11/24 10:57 BP 142/70 H 05/11/24 10:57 Pulse Ox 100 05/11/24 10:57 O2 Del Method Room Air 05/11/24 10:57 Pain Score (VAS): 0 I/O: Intake & Output 05/10/24 05/11/24 05/11/24 23:59 07:59 15:59 Intake Total 300 Balance 300 Post-procedural complaints: none Patient Feedback: Patient satisfied with anesthetic care. Other Findings: Patient vital signs back to baseline. Patient denies nausea and vomiting. Patient's pain under control. Patient OK for discharge.
== END 2024-05-11 11:10 | disposition home or self-care (01) ==
PROVIDERS: PCP Family Medicine; Visit Provider Internal Medicine Gastroenterology
PROC: 0DJD8ZZ Inspection of Lower Intestinal Tract, Via Natural or Artificial Opening Endoscopic (ICD-10-PCS; CPT 45378; principal; 2024-05-11 10:30)
DX: Z85.038 Personal history of other malignant neoplasm of large intestine (principal); K63.89 Other specified diseases of intestine; K57.30 Diverticulosis of large intestine without perforation or abscess without bleeding; K64.8 Other hemorrhoids
CPT/HCPCS: G0105

== ENCOUNTER 2024-07-28 09:33 | Outpatient (CLI) | payer MEDICARE, SELFPAY ==
[2024-07-28 11:22] LABS: Alanine Aminotransferase 7 U/L (6-35); Albumin Level 4.2 g/dL (3.5-5.1); Alkaline Phosphatase 77 U/L (38-126); Anion Gap 10 mmol/L (4-12); Aspartate Amino Transferase 21 U/L (14-36); Bilirubin,Total 0.8 mg/dL (0.2-1.3); Blood Urea Nitrogen 21 mg/dL (7-17); Calcium 9.6 mg/dL (8.4-10.2); Carbon Dioxide 28 mmol/L (22-30); Chloride 103 mmol/L (98-107); Cholesterol 251 mg/dL (0-200); Estimated Glomerular Filt Rate > 60; Glucose 98 mg/dL (65-110); HDL Direct 105 mg/dL; Hemoglobin 12.8 g/dL (12.0-15.0); Mean Corpuscular Hemoglobin 32.3 pg (26-34); Mean Platelet Volume 11.8 fl (7.4-10.4); Platelet Count Result 207 k/mm3 (150-375); Red Blood Count 3.96 M/mm3 (4.2-5.4); Sodium 141 mmol/L (137-145); Triglycerides 71 mg/dL (<150); White Blood Count 4.6 K/mm3 (4.5-10.0)
[2024-07-28 11:33] LABS: LDL Cholesterol Direct 118 mg/dL
[2024-07-28 11:58] LABS: Vitamin D 25 Hydroxy 53.4 ng/mL
== END 2024-07-28 09:34 | disposition home or self-care (01) ==
PROVIDERS: PCP Family Medicine; Visit Provider Nurse Practitioner
DX: E78.5 Hyperlipidemia, unspecified (principal); D64.9 Anemia, unspecified; E55.9 Vitamin D deficiency, unspecified
CPT/HCPCS: 36415; 80053; 80061; 82306; 85027

== ENCOUNTER 2025-01-04 09:32 | Outpatient (CLI) | payer MEDICARE, SELFPAY ==
--- NOTE | ~2025-01-04 | MM_ITS ---
EXAMINATION: MM screening refugio BI w koby HISTORY: Screening mammogram TECHNIQUE: Craniocaudal and mediolateral oblique 3-D tomosynthesis images were obtained and synthetic 2-D images were generated. CAD analysis was submitted and interpreted. COMPARISON: 12/08/2023, 10/01/2022, 07/17/2021 BREAST PARENCHYMAL COMPOSITION:Not Dense. There are scattered areas of fibroglandular density. FINDINGS: Stable subareolar left breast mass. No suspicious mass, calcification, or architectural dis tortion are identified in either breast to suggest malignancy. There has been no suspicious interval change. IMPRESSION: No mammographic evidence of malignancy. Recommend routine screening mammography in one year. BI-RADS Category 2: Benign finding(s). Reviewed, dictated and finalized at [facility].
== END 2025-01-04 09:33 | disposition home or self-care (01) ==
LOC: ANHIMG 09:33
PROVIDERS: PCP Family Medicine; Visit Provider Family Medicine
DX: Z12.31 Encounter for screening mammogram for malignant neoplasm of breast (principal)
CPT/HCPCS: 77063; 77067

== ENCOUNTER 2025-02-28 07:42 | Outpatient (CLI) | payer MEDICARE, SELFPAY ==
[2025-02-28 08:41] LABS: Hematocrit 37.7 % (37.0-47.0); Hemoglobin 12.1 g/dL (12.0-15.0); Mean Corpuscular HGB Conc 32.1 g/dl (32-36); Mean Corpuscular Hemoglobin 31.5 pg (26-34); Mean Corpuscular Volume 98.2 fl (80-100); Platelet Count Result 193 k/mm3 (150-375); Red Blood Count 3.84 M/mm3 (4.2-5.4); White Blood Count 5.2 K/mm3 (4.5-10.0)
[2025-02-28 09:03] LABS: Alanine Aminotransferase 8 U/L (6-35); Albumin Level 3.9 g/dL (3.5-5.1); Alkaline Phosphatase 71 U/L (38-126); Anion Gap 5 mmol/L (4-12); Aspartate Amino Transferase 25 U/L (14-36); Bilirubin,Total 0.6 mg/dL (0.2-1.3); Blood Urea Nitrogen 16 mg/dL (7-17); Calcium 9.4 mg/dL (8.4-10.2); Carbon Dioxide 28 mmol/L (22-30); Chloride 104 mmol/L (98-107); Cholesterol 218 mg/dL (0-200); Estimated Glomerular Filt Rate > 60; Glucose 102 mg/dL (65-110); HDL Direct 82 mg/dL; Potassium 3.9 mmol/L (3.4-5.0); Sodium 137 mmol/L (137-145); Total Protein 6.8 g/dL (6.3-8.2); Triglycerides 68 mg/dL (<150)
[2025-02-28 09:39] LABS: Thyroid Stimulating Hormone 2.850 uIU/mL (0.465-4.680)
== END 2025-02-28 07:43 | disposition home or self-care (01) ==
LOC: ANHLAB 07:42
PROVIDERS: PCP Family Medicine; Visit Provider Family Medicine
DX: D64.9 Anemia, unspecified (principal); E78.5 Hyperlipidemia, unspecified; Z79.899 Other long term (current) drug therapy; E55.9 Vitamin D deficiency, unspecified
CPT/HCPCS: 36415; 80053; 80061; 84443; 85027